=== PATIENT | male | born 1970 | race Caucasian/White ===

== ENCOUNTER 2023-05-20 19:08 | Inpatient (IN) | payer OTHER ==
[2023-05-20 19:33] VITALS: BMI 18.3
[2023-05-21] MEDS ORDERED: ACETAMINOPHEN 325 MG TABLET (FP) PO PRN (00:09)
[2023-05-21] MEDS ORDERED: NALOXONE HCL (KLOXXADO) 8 MG SPRAY NS PRN (00:09)
[2023-05-21] MEDS ORDERED: NALOXONE HCL 0.4 MG/ML VIAL IM PRN (00:09)
[2023-05-21] MEDS ORDERED: BENZOCAINE/MENTHOL (CHLORASEPTIC ) LOZENGE MM PRN (00:09)
[2023-05-21] MEDS ORDERED: LOPERAMIDE HCL 2 MG CAPSULE PO PRN (00:09)
[2023-05-21] MEDS ORDERED: MAG HYDROX/AL HYDROX/SIMETH 30 ML UNIT-DOSE CUP PO PRN (00:09)
[2023-05-21] MEDS ORDERED: MAGNESIUM HYDROX 2400MG/30ML ORAL SUSPENSION 30 ML CUP PO PRN (00:09)
[2023-05-21] MEDS ORDERED: POLYETHYLENE GLYCOL (HEALTHYLAX) 3350 17 GM PACKET PO PRN (00:09)
[2023-05-21] MEDS ORDERED: guaiFENesin 600 MG TABLET.ER (FP) PO PRN (00:09)
[2023-05-21] MEDS ORDERED: IBUPROFEN 400 MG TABLET (FP) PO PRN (00:09)
[2023-05-21] MEDS ORDERED: BENZONATATE 200 MG CAPSULE PO PRN (00:09)
[2023-05-21] MEDS: methaDONE 80 MG, methaDONE 20 MG PO SCH (07:43)
[2023-05-21] MEDS: methaDONE HCL 10 MG TABLET PO SCH (07:45)
[2023-05-21 10:02] LABS: HEMATOCRIT 37.8 % (35.4-49); MCH 27.9 pg (25.7-33.7); MCHC 34.4 g/dl (32.0-35.9); MEAN CELL VOLUME 81.2 fl (80-96); MEAN PLT VOLUME 7.1 fl (7.5-11.1); PLATELET COUNT 464 10^3/uL (134-434); RBC 4.66 M/mm3 (4.00-5.60); RDW 15.6 % (11.9-15.9); WHITE BLOOD COUNT 11.3 K/mm3 (4.0-10.0)
[2023-05-21] MEDS: PRENATAL VITAMINS W/ FOLIC ACID TABLET (FP) PO SCH (10:21)
[2023-05-21 10:38] LABS: CHLORIDE 102 mmol/L (98-107); POTASSIUM 4.3 mmol/L (3.5-5.1); SODIUM 138 mmol/L (136-145)
[2023-05-21 10:44] LABS: ALBUMIN 2.8 g/dl (3.4-5.0); CALCIUM 8.9 mg/dL (8.5-10.1)
[2023-05-21 10:45] LABS: ANION GAP 7 mmol/L (4-13); BLOOD UREA NITROGEN 11.4 mg/dL (7-18); CO2 28 mmol/L (21-32); GLUCOSE,RANDOM 95 mg/dL (74-106)
[2023-05-21 10:46] LABS: CREATININE 0.7 mg/dL (0.55-1.3); SGOT/AST 16 U/L (15-37)
[2023-05-21 10:47] LABS: BILIRUBIN,TOTAL 0.3 mg/dL (0.2-1); TOT PROT 7.4 g/dl (6.4-8.2)
[2023-05-21 10:48] LABS: ALK PHOS 77 U/L (45-117)
[2023-05-21 10:54] LABS: SGPT/ALT 15 U/L (13-61)
[2023-05-21 11:13] LABS: SYPHILIS W/ RPR CONF NON-REACTIVE (NONREACTIVE)
[2023-05-21 15:50] LABS: URINE APPEARANCE CLEAR; URINE BILIRUBIN NEGATIVE (NEGATIVE); URINE COLOR YELLOW; URINE GLUCOSE (UA) NEGATIVE (NEGATIVE); URINE KETONE NEGATIVE (NEGATIVE); URINE LEUK ESTERASE NEGATIVE (NEGATIVE); URINE NITRITE NEGATIVE (NEGATIVE); URINE PROTEIN TRACE (NEGATIVE); URINE UROBILINOGEN 0.2 mg/dL (0.2-1.0)
[2023-05-21] MEDS: THIAMINE HCL 100 MG TABLET (FP) PO SCH (21:32)
[2023-05-21] MEDS: MELATONIN 5 MG TABLETS PO SCH (21:32)
[2023-05-23] MEDS: IBUPROFEN 600 MG TABLET (FP) PO PRN (19:23)
[2023-05-23] MEDS: hydrOXYzine PAMOATE 25 MG CAPSULE (FP) PO PRN (19:29)
[2023-05-26] MEDS: methaDONE 80 MG, methaDONE 20 MG PO SCH (11:01)
[2023-05-27] MEDS: GABAPENTIN 300 MG CAPSULE PO SCH (13:01)
[2023-05-27] MEDS ORDERED: ONDANSETRON *ODT* 4 MG TABLET SL PRN (15:22)
[2023-05-27] MEDS: DICYCLOMINE HCL 10 MG CAPSULE PO PRN (15:31)
[2023-05-27] MEDS: SUVOREXANT 10 MG TABLET PO PRN (22:23)
[2023-05-28] MEDS ORDERED: methaDONE HCL 40 MG DISPERSABLE TABLET PO SCH (02:26)
[2023-05-28] MEDS: methaDONE 80 MG, methaDONE 10 MG PO SCH ×2 (07:04→09:53)
[2023-05-28] MEDS: CABERGOLINE 0.5 MG PO SCH (11:25)
[2023-05-28] MEDS: CABERGOLINE 0.5 MG TABLET PO ONE (15:40)
[2023-05-30 08:03] VITALS: BP 116/74; PULSE 65; RESP 16; TEMP 98.1
[2023-05-30] MEDS ORDERED: methaDONE HCL 40 MG DISPERSABLE TABLET PO SCH (08:16)
[2023-05-30] MEDS: methaDONE 80 MG, methaDONE 20 MG PO SCH (09:27)
[2023-05-30] MEDS ORDERED: SUVOREXANT 10 MG TABLET PO PRN (22:00)
[2023-05-31] MEDS ORDERED: CABERGOLINE 0.5 MG TABLET PO SCH (10:00)
== END 2023-05-30 14:33 | disposition home or self-care (01) | DRG 772 ==
LOC: YASAS 19:08 → Y3E 05-21
PROVIDERS: ADMIT Allergy & Immunology; ATTEND Psychiatry & Neurology Pain Medicine
PROC: HZ42ZZZ Group Counseling for Substance Abuse Treatment, Cognitive-Behavioral (ICD-10-PCS; principal; 2023-05-21)
DX: F11.20 Opioid dependence, uncomplicated (principal); F10.20 Alcohol dependence, uncomplicated; F19.24 Other psychoactive substance dependence with psychoactive substance-induced mood disorder; F41.9 Anxiety disorder, unspecified; G47.00 Insomnia, unspecified; R11.2 Nausea with vomiting, unspecified; Z87.891 Personal history of nicotine dependence; Z59.00 Homelessness unspecified
CPT/HCPCS: 0241U-QW; 36415; 80053; 80307; 81003; 85027; 86780; 86803; 87522; 87811; 93005; 93010

== ENCOUNTER 2023-07-11 15:03 | Inpatient (IN) | payer OTHER ==
[2023-07-11 17:42] VITALS: BMI 17.9
[2023-07-11] MEDS ORDERED: METHOCARBAMOL 500 MG TABLET PO PRN (19:18)
[2023-07-11] MEDS ORDERED: BENZOCAINE/MENTHOL (CHLORASEPTIC ) LOZENGE MM PRN (19:18)
[2023-07-11] MEDS ORDERED: DICYCLOMINE HCL 10 MG CAPSULE PO PRN (19:18)
[2023-07-11] MEDS ORDERED: IBUPROFEN 600 MG TABLET (FP) PO PRN (19:18)
[2023-07-11] MEDS ORDERED: POLYETHYLENE GLYCOL (HEALTHYLAX) 3350 17 GM PACKET PO PRN (19:18)
[2023-07-11] MEDS ORDERED: hydrOXYzine PAMOATE 25 MG CAPSULE (FP) PO PRN (19:18)
[2023-07-11] MEDS ORDERED: BENZONATATE 200 MG CAPSULE PO PRN (19:18)
[2023-07-11] MEDS ORDERED: IBUPROFEN 400 MG TABLET (FP) PO PRN (19:18)
[2023-07-11] MEDS ORDERED: BISMUTH SUBSALICYLATE 524 MG/30 ML PO PRN (19:18)
[2023-07-11] MEDS ORDERED: MAGNESIUM HYDROX 2400MG/30ML ORAL SUSPENSION 30 ML CUP PO PRN (19:18)
[2023-07-11] MEDS ORDERED: MAG HYDROX/AL HYDROX/SIMETH 30 ML UNIT-DOSE CUP PO PRN (19:18)
[2023-07-11] MEDS ORDERED: LOPERAMIDE HCL 2 MG CAPSULE PO PRN (19:18)
[2023-07-11] MEDS ORDERED: NALOXONE HCL 0.4 MG/ML VIAL IM PRN (19:18)
[2023-07-11] MEDS ORDERED: ACETAMINOPHEN 325 MG TABLET (FP) PO PRN (19:18)
[2023-07-11] MEDS ORDERED: NALOXONE HCL (KLOXXADO) 8 MG SPRAY NS PRN (19:18)
[2023-07-11] MEDS ORDERED: diazePAM 5 MG TABLET PO PRN (19:18)
[2023-07-11] MEDS ORDERED: ONDANSETRON *ODT* 4 MG TABLET SL PRN (19:18)
[2023-07-11] MEDS: guaiFENesin 600 MG TABLET.ER (FP) PO PRN (22:38)
[2023-07-11] MEDS: MELATONIN 5 MG TABLETS PO SCH (22:38)
[2023-07-11] MEDS: THIAMINE HCL 100 MG TABLET (FP) PO SCH (22:39)
[2023-07-11] MEDS: diazePAM 5 MG TABLET PO SCH (22:39)
[2023-07-12] MEDS ORDERED: methaDONE HCL 10 MG TABLET PO SCH (08:45)
[2023-07-12] MEDS: methaDONE 80 MG, methaDONE 20 MG PO SCH (10:25)
[2023-07-12] MEDS: PRENATAL VITAMINS W/ FOLIC ACID TABLET (FP) PO SCH (10:26)
[2023-07-12 12:05] LABS: CHLORIDE 100 mmol/L (98-107); POTASSIUM 4.5 mmol/L (3.5-5.1); SODIUM 137 mmol/L (136-145)
[2023-07-12 12:08] LABS: HEMATOCRIT 37.8 % (35.4-49); HEMOGLOBIN 12.3 GM/dL (11.7-16.9); MCH 27.5 pg (25.7-33.7); MCHC 32.6 g/dl (32.0-35.9); MEAN CELL VOLUME 84.4 fl (80-96); MEAN PLT VOLUME 7.4 fl (7.5-11.1); PLATELET COUNT 333 10^3/uL (134-434); RBC 4.48 M/mm3 (4.00-5.60); RDW 15.7 % (11.9-15.9); WHITE BLOOD COUNT 11.8 K/mm3 (4.0-10.0)
[2023-07-12 12:11] LABS: CALCIUM 9.1 mg/dL (8.5-10.1)
[2023-07-12 12:12] LABS: ALBUMIN 2.8 g/dl (3.4-5.0); ANION GAP 6 mmol/L (4-13); BLOOD UREA NITROGEN 11.8 mg/dL (7-18); CO2 30 mmol/L (21-32); CREATININE 0.8 mg/dL (0.55-1.3); GLUCOSE,RANDOM 86 mg/dL (74-106); SGPT/ALT 18 U/L (13-61)
[2023-07-12 12:15] LABS: SGOT/AST 16 U/L (15-37)
[2023-07-12 12:18] LABS: ALK PHOS 84 U/L (45-117); BILIRUBIN,TOTAL 0.5 mg/dL (0.2-1)
[2023-07-13] MEDS: diazePAM 5 MG TABLET PO SCH (05:58)
[2023-07-13 06:00] VITALS: RESP 16
[2023-07-13 09:13] VITALS: TEMP 97.7
[2023-07-13] MEDS ORDERED: methaDONE HCL 10 MG TABLET PO ONE (10:24)
[2023-07-13] MEDS: methaDONE 80 MG, methaDONE 20 MG PO SCH (10:55)
[2023-07-13] MEDS ORDERED: methaDONE 80 MG, methaDONE 20 MG PO SCH (11:00)
[2023-07-13 12:55] VITALS: BP 110/68; PULSE 81
[2023-07-14] MEDS ORDERED: diazePAM 5 MG TABLET PO SCH (06:00)
[2023-07-14] MEDS ORDERED: methaDONE HCL 10 MG TABLET PO SCH (10:00)
[2023-07-15] MEDS ORDERED: diazePAM 5 MG TABLET PO ONE (06:00)
== END 2023-07-13 13:03 | disposition left against medical advice (07) | DRG 770 ==
LOC: YASAS 15:03 → Y3N 19:37
PROVIDERS: ADMIT Allergy & Immunology; ATTEND Surgery
PROC: HZ2ZZZZ Detoxification Services for Substance Abuse Treatment (ICD-10-PCS; principal; 2023-07-12)
DX: F10.230 Alcohol dependence with withdrawal, uncomplicated (principal); F11.20 Opioid dependence, uncomplicated; F14.20 Cocaine dependence, uncomplicated; F41.8 Other specified anxiety disorders; F19.24 Other psychoactive substance dependence with psychoactive substance-induced mood disorder; Z86.19 Personal history of other infectious and parasitic diseases; Z87.891 Personal history of nicotine dependence; Z59.00 Homelessness unspecified; Z56.0 Unemployment, unspecified
CPT/HCPCS: 36415; 80053; 80307; 85027; 86780; 93005; 93010